=== PATIENT | male | born 1960 | race Caucasian/White ===

== ENCOUNTER → 2019-02-08 | Outpatient (CLI) | payer OTHER | LOC: COL.RAD 09:30 | DX: M79.89 Other specified soft tissue disorders (principal); R59.0 Localized enlarged lymph nodes ==

== ENCOUNTER → 2019-08-30 | Outpatient (CLI) | payer OTHER | LOC: SUN.CLI 08:28 | DX: Z76.89 Persons encountering health services in other specified circumstances (principal); Z71.3 Dietary counseling and surveillance; C34.12 Malignant neoplasm of upper lobe, left bronchus or lung ==

== ENCOUNTER 2019-09-07 09:39 | Outpatient (RCR) | payer OTHER | END 2019-12-06 | disposition home or self-care (01) | LOC: WSST | DX: R13.12 Dysphagia, oropharyngeal phase (principal); C77.9 Secondary and unspecified malignant neoplasm of lymph node, unspecified ==

== ENCOUNTER 2023-02-18 15:40 | Emergency (ER) | payer OTHER ==
[~2023-02-18] VITALS: Ht 170.2 cm; Wt 84.1 kg
[2023-02-18 15:46] VITALS: TEMP 98.2
[2023-02-18] MEDS ORDERED: CEPHALEXIN500 M1 PO (18:40)
[2023-02-18 18:59] VITALS: BP 150/62; PULSE 67
== END 2023-02-18 19:02 | disposition home or self-care (01) ==
LOC: COL.ER 15:40
DX: S66.127A Laceration of flexor muscle, fascia and tendon of left little finger at wrist and hand level, initial encounter (principal); W31.89XA Contact with other specified machinery, initial encounter